=== PATIENT | male | born 1945 | race Caucasian/White ===

== ENCOUNTER 2017-09-25 10:20 | Emergency (ER) | payer BC ==
[2017-09-25 13:41] LABS: Hematocrit 43 % (42-52); Hemoglobin 14.6 g/dl (14.0-18.0); Mean Corpuscular HGB Conc 34 g/dl (31-36); Mean Corpuscular Hemoglobin 34 pg (27-31); Mean Corpuscular Volume 101 fL (80-94); Mean Platelet Volume 8 um3 (7.4-10.4); Red Blood Count 4.26 10^6/ul (4.0-5.4); Red Cell Distribution Width 12 % (10.5-15); White Blood Count 9.1 10^3/ul (3.5-10.8)
--- NOTE | 2017-09-25 13:43 | ED ---
Lower Extremity - HPI Summary HPI Summary: Pt here w/ Rt heel pain, redness and swelling x 4 weeks from suspected FB. Stepped on a toothpick 4 weeks ago - got some of it out but believes he still has some retained. Reports after stepping on this and removing particles, he had no pain. Was getting around well for 1 week. Week 2 he noticed pain and redness in affected area so went to PCP who started him on keflex. This resolved the redness and pain and pt did well until a few days of being off of keflex - pain and redness returned.He then went to his carrier blower who ordered an XR - this did not show FB. His wound was cultured at that time and he was given a course of amoxicillin. Went back to PCP who removed part of a blister that had formed with purulent material inside. He has taken 4 days of amoxicillin and no change in sx. He was seen again at carrier blower today who referred him here - carrier blower would like our team to handle the case. Cx reveals strep intermedius which was pansensitive. Pt reports a repeat cx was taken today at carrier blower office -will call to confirm they are processing - if not will repeat and send here. Pt denies fever, chills, nausea, vomiting, diarrhea, chest pain, shortness of breath, streaking from wound site and no calf pain. 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 He also has DM controlled with insulin - denies elevation of glucose over course of infection. Other than pain with weight bearing in the heel, he reports feeling fine otherwise and no known h/o peripheral neuropathy. Heel does not bother him at rest - worse w/ weight bearing. - History of Current Complaint Chief Complaint: EDExtremityLower Stated Complaint: RT HEEL COMPLAINT Time Seen by Provider: 09/25/17 12:24 Hx Obtained From: Patient Pain Intensity: 1 - Allergies/Home Medications Allergies/Adverse Reactions: Allergies Allergy/AdvReac Type Severity Reaction Status Date / Time Lisinopril Allergy Palpitation Verified 03/15/16 12:15 s Losartan [From Cozaar] Allergy Palpitation Verified 03/15/16 12:15 s Statins Allergy Muscle Ache Verified 03/15/16 12:15 PMH/Surg Hx/FS Hx/Imm Hx Previously Healthy: Yes Endocrine/Hematology History: Reports: Hx Anticoagulant Therapy - xarelto, Hx Diabetes - insulin dependent - controlled - followed by [facility] Denies: Hx Blood Disorders, Hx Anemia, Hx Unexplained Bleeding Cardiovascular History: Reports: Hx Deep Vein Thrombosis - Rt LE Sensory History: Denies: Hx Contacts or Glasses, Hx Hearing Aid Opthamlomology History: Denies: Hx Contacts or Glasses - Surgical History Surgery Procedure, Year, and Place: TONSILLECTOMY A CHILD Hx Anesthesia Reactions: No - Immunization History Immunizations Up to Date: Yes - received tetanus booster at PCP upon initial injury Infectious Disease History: No Infectious Disease History: Denies: Hx of Known/Suspected MRSA, Traveled Outside the [place] in Last 30 Days - Family History Known Family History: Positive: Other - Blood clots - Social History Occupation: Retired Lives: With Family Alcohol Use: Daily Alcohol Amount: GLASS WINE/NIGHT Hx Substance Use: No Substance Use Type: Reports: None Hx Tobacco Use: No Smoking Status (MU): Never Smoked Tobacco Review of Systems Constitutional: Negative Negative: Fever, Chills, Fatigue Cardiovascular: Negative Respiratory: Negative Gastrointestinal: Negative Positive: no symptoms reported Positive: Edema. Negative: Decreased ROM Skin: Other - wound Neurological: Negative Psychological: Normal All Other Systems Reviewed And Are Negative: Yes Physical Exam Triage Information Reviewed: Yes Vital Signs On Initial Exam: Initial Vitals Temp Pulse Resp BP Pulse Ox 98.4 F 69 18 141/70 97 09/25/17 10:32 09/25/17 10:32 09/25/17 10:32 09/25/17 10:32 09/25/17 10:32 Vital Signs Reviewed: Yes Appearance: Positive: Well-Appearing, No Pain Distress, Well-Nourished Skin: Positive: Warm - erythematous heel with missing superficial layer of calloused dermis (this appears to be "blistered" area that was removed as edges are clean about the wound ) - underlying tissue is erythematous with central ulcer - drainage serosanginous fluid - possibly purulence vs. tissue protrusion (subcutaneous) - cannot express purulence from tissue - TTP. These findings appear to be isolated to the heel - no streaking and calf is NTTP; no crepitus w / palpation and no obvious FB observed Head/Face: Positive: Normal Head/Face Inspection Eyes: Positive: Normal, EOMI ENT: Positive: Hearing grossly normal Respiratory/Lung Sounds: Positive: Breath Sounds Present Cardiovascular: Positive: Pulses are Symmetrical in both Upper and Lower Extremities. Negative: Leg Edema Left, Leg Edema Right Musculoskeletal: Positive: Normal, Strength/ROM Intact Neurological: Positive: Normal, Sensory/Motor Intact, Alert, Oriented to Person Place, Time, CN Intact II-III Psychiatric: Positive: Normal Diagnostics - Vital Signs Vital Signs Temp Pulse Resp BP Pulse Ox 09/25/17 10:32 98.4 F 69 18 141/70 97 - Laboratory Result Diagrams: 09/25/17 13:31 09/25/17 13:31 Diagnostic Studies Comment: US: report indicates tissue edema w/o fluid collection and no FB observed Lab Statement: Any lab studies that have been ordered have been reviewed, and results considered in the medical decision making process. Lower Extremity Course/Dx - Course Course Of Treatment: Discussed case w/ Pt's carrier blower (Dr. Mora) who defers care to our team at this time. Labs are unremarkable for significant infection and does not appear to have sepsis - he is taking amoxicillin and blood cx's were not taken today. Discussed w/ Dr. Sorenson with concerns for possible osteomyelitis (subacute) - he feels pt does not need osteomyelitis imaging today - may be performed outpt. May restart keflex (will try 2 week course and close f/u outpt with their practice next week). Pt to call today to schedule appointment - Dr. Longoria requesting all information be sent to their offic for management of care - will have pt request record transfer as well from here, PCP's office and podiatry's office. Pt aware if danger s/sx present in the meantime, return to ED. Offered pt crutches/cane to avoid weight bearing - he states he will continue to walk on his toes - declines implement. - Diagnoses Provider Diagnoses: Cellulitis of right heel Discharge - Discharge Plan Condition: Stable Disposition: HOME Prescriptions: Cephalexin CAP* [Keflex CAP*] 500 mg PO QID #56 cap Patient Education Materials: Cellulitis (ED) Referrals: Bear Segura MD [Primary Care Provider] - Additional Instructions: Stop Amoxicillin and start keflex 500mg 4 x day for 2 weeks (sent to your pharmacy, complete course). In the meantime, you may perform warm epsom salt soaks alternating with soapy soaks - rinse wound under water after each soak to aid in debridement of wound. Dry well and dress with absorbant/padded dressing. Elevate and avoid weight bearing to reduce pain and swelling You may take acetaminophen if pain develops Follow-up with Dr. Sorenson next week. Call today to schedule an appointment. You appear to have cellulitis without an abscess however a subacute osteomyelitis may be investigated at follow-up as necessary. *If you develop streaking of redness, purulent drainage, fever, chills, pain, increased swelling or abnormal elevation of glucose levels in the meantime, return to ED Please also contact your PCP and Dr. Brown to request record transfer to Dr. Sorenson's office for comprehensive review of case.
[2017-09-25 13:55] LABS: Albumin 3.4 g/dL (3.2-5.2); BUN/Creatinine Ratio 27.4 (8-20); C Reactive Protein 22.53 mg/L (< 5.00); Calcium 9.1 mg/dL (8.6-10.3); EGFR African American 136.6 (>60); EGFR Non-African American 106.2 (>60); Globulin 3.5 g/dL (2-4); Potassium 4.1 mmol/L (3.5-5.0); Total Bilirubin 0.6 mg/dL (0.2-1.0); Total Protein 6.9 g/dL (6.4-8.9)
[2017-09-25] MEDS ORDERED: Cephalexin CAP* 500 MG PO ONE (14:41)
--- NOTE | 2017-09-25 15:04 | RAD ---
Indication: Open wound with pain in the right heel. Real-time sonography of the right soft tissues of the heel are noted. There is no evidence of a echogenic focus to suggest a foreign body. There is diffuse subcutaneous edema noted without discrete fluid collection. IMPRESSION: Soft tissue edema without discrete echogenic foreign body or fluid collections.
[2017-09-25 16:10] VITALS: BP 154/80
== END 2017-09-25 16:09 | disposition home or self-care (01) ==
LOC: ED 10:20
DX: L03.115 Cellulitis of right lower limb (principal); Z79.01 Long term (current) use of anticoagulants; E11.9 Type 2 diabetes mellitus without complications; Z79.4 Long term (current) use of insulin; Z86.718 Personal history of other venous thrombosis and embolism
CPT/HCPCS: 36415; 80053; 83605; 85025; 85730; 86140; 87070; 87205; A9270-GY

== ENCOUNTER 2023-12-13 17:48 | Inpatient (IN) ==
[2023-12-14] MEDS: Iohexol 350 (CONTRAST) 500 ML MDV IV ONE (01:11)
[2023-12-14 01:31] LABS: ABS Eosinophils 0.2 10^3/uL (0.0-0.5); ABS Lymphocytes 1.4 10^3/uL (1.0-4.8); ABS Monocytes 0.9 10^3/uL (0.0-1.1); ABS Neutrophils 3.8 10^3/uL (1.5-7.6); Eosinophil % 3.6 %; Hematocrit 33.6 % (38-53); Hemoglobin 11.9 g/dL (13.2-16.3); Mean Corpuscular Hemoglobin 36.1 pg (27-33); Mean Corpuscular Hgb Conc 35.3 g/dL (31-36); Mean Corpuscular Volume 102.2 fL (80-97); Mean Platelet Volume 8.8 fL (7.5-11.2); Nucleated Red Blood Cells % 0.1 %/100WBC (0.0-0.8); Platelet Count 152 10^3/uL (150-450); Red Blood Count 3.29 10^6/uL (4.06-5.63); Red Cell Distribution Width 11.5 % (12-17); White Blood Count 6.3 10^3/uL (3.6-10.2)
[2023-12-14 01:52] LABS: Albumin 2.8 g/dL (3.2-5.2); Albumin/Globulin Ratio 0.8 (1-3); C Reactive Protein 68.33 mg/L (<8.01); Calcium 8.2 mg/dL (8.6-10.3); Creatinine, Serum 0.73 mg/dL (0.67-1.17); Globulin 3.4 g/dL (2-4); Potassium 3.7 mmol/L (3.5-5.0); Total Bilirubin 0.9 mg/dL (0.2-1.0); Total Protein 6.2 g/dL (6.4-8.9); eGFR CKD-EPI 94.3 (>60)
[2023-12-14 02:46] LABS: INR 1.29 (0.83-1.13)
[2023-12-14 03:05] LABS: High Sensitivity Troponin 1 Hr 6 pg/mL (<20)
[2023-12-14] MEDS: Lactated Ringers 1000 ml BAG 1,000 ML IV SCH (06:11)
[2023-12-14] MEDS: Heparin DRIP 25,000 UNITS BAG 25,000 UNITS/250 ML BAG IV SCH (06:25)
[2023-12-14 06:28] LABS: ABS Eosinophils 0.1 10^3/uL (0.0-0.5); ABS Lymphocytes 0.8 10^3/uL (1.0-4.8); ABS Monocytes 0.7 10^3/uL (0.0-1.1); ABS Neutrophils 4.9 10^3/uL (1.5-7.6); Eosinophil % 1.6 %; Hematocrit 35.5 % (38-53); Hemoglobin 12.3 g/dL (13.2-16.3); Mean Corpuscular Hemoglobin 35.1 pg (27-33); Mean Corpuscular Hgb Conc 34.6 g/dL (31-36); Mean Corpuscular Volume 101.5 fL (80-97); Mean Platelet Volume 8.8 fL (7.5-11.2); Platelet Count 163 10^3/uL (150-450); Red Blood Count 3.49 10^6/uL (4.06-5.63); Red Cell Distribution Width 11.6 % (12-17); White Blood Count 6.5 10^3/uL (3.6-10.2)
[2023-12-14] MEDS: Heparin 5000 UNITS/ML 1 mL VIAL IV SCH (06:30)
[2023-12-14 06:44] LABS: Creatinine, Serum 0.67 mg/dL (0.67-1.17); eGFR CKD-EPI 96.8 (>60)
[2023-12-14] MEDS ORDERED: Dextrose 50% Syringe 50 ml 25 GM/50 ML SYRINGE IV PUSH PRN (07:41)
[2023-12-14] MEDS: Insulin GLARGINE 100 un/ml 10 ml VIAL SUBCUT SCH (09:09)
[2023-12-14] MEDS: Heparin 2 UNITS/ML 1000 mls 1,000 ML IV ONE (14:11)
[2023-12-14 15:13] VITALS: BP 115/65
== END 2023-12-14 16:35 | disposition home or self-care (01) | DRG 299 ==
LOC: ED 17:48 → EDHOLD 12-14 02:33 → SUATTDRO 12-14 02:33 → MED 12-14 12:44
PROVIDERS: ADMIT Internal Medicine; ATTEND Student in an Organized Health Care Education/Training Program